=== PATIENT | female | born 1940 | race Caucasian/White ===

== ENCOUNTER 2019-07-17 19:23 | Emergency (ER) | payer OTHER ==
[~2019-07-17] VITALS: Ht 157.5 cm; Wt 59.0 kg
[~2019-07-17 19:23] MED LIST: ENDOCET 5-3251 EACH; FLEXERIL PO; IBUPROFEN 800800 M1 PO; LEVOTHYROXINE0.05 MG; NORCO 5-325 TA1 EACH PO; OXYCONTIN10 M1 PO
[2019-07-17] MEDS ORDERED: PREDNISONE50 MG PO (20:20)
[2019-07-17] MEDS ORDERED: VISTARIL 25 MG25 M1 PO (20:20)
[2019-07-17 20:45] VITALS: BP 150/72
== END 2019-07-17 20:45 | disposition home or self-care (01) ==
LOC: M.ERS 19:23
DX: T63.441A Toxic effect of venom of bees, accidental (unintentional), initial encounter (principal); L50.9 Urticaria, unspecified; E03.9 Hypothyroidism, unspecified; Z98.890 Other specified postprocedural states; Y92.89 Other specified places as the place of occurrence of the external cause